=== PATIENT | male | born 1990 | race African-American/Black ===

== ENCOUNTER 2023-08-28 12:51 | Emergency (ER) | payer MEDICAID ==
[~2023-08-28] VITALS: Ht 190.5 cm; Wt 165.0 kg
[2023-08-28 13:04] VITALS: O2SAT 99
[2023-08-28] MEDS ORDERED: HYDR-4001 MT (14:00)
[2023-08-28] MEDS ORDERED: IBUP-2030 MT (14:00)
[2023-08-28] MEDS ORDERED: IBUPROFEN 800MG TABLET PO ONE (14:00)
[2023-08-28 14:29] VITALS: TEMP 98.6
[2023-08-28] MEDS: HYDROCODONE/ACETAMINOPHEN 5/325MG TABLET PO ONE (14:30)
[2023-08-28 14:31] VITALS: BP 152/117; PULSE 72; RESP 18
[2023-08-28] MEDS: IBUPROFEN 400MG TABLET PO NR (14:31)
== END 2023-08-28 14:40 | disposition home or self-care (01) ==
LOC: ER 14:02
DX: S16.1XXA Strain of muscle, fascia and tendon at neck level, initial encounter (principal); S83.61XA Sprain of the superior tibiofibular joint and ligament, right knee, initial encounter; V49.49XA Driver injured in collision with other motor vehicles in traffic accident, initial encounter; Y93.89 Activity, other specified; Y92.89 Other specified places as the place of occurrence of the external cause; Y99.8 Other external cause status
CPT/HCPCS: 99283